=== PATIENT | male | born 1960 | race Caucasian/White ===

== ENCOUNTER → 2017-02-11 | Outpatient (CLI) | payer BC, MEDICARE ==
[~2017-02-11] VITALS: Ht 177.8 cm; Wt 149.5 kg
[~2017-02-11] MED LIST: AMARYL4 M1 PO; AMBIEN10 MG PO; ATORVASTATIN CA40 MG PO; CRESTOR 10MG10 MG PO; EC-NAPROSYN500 MG PO; GLUCOPHAGE PO; HYDROCHLOROTHIA1 T14 PO; NORCO 10-325 T1 EACH PO
[2017-02-11 10:07] VITALS: BP 138/68
== END ==
LOC: AMSURD 09:53
DX: Z00.00 Encounter for general adult medical examination without abnormal findings (principal); E11.9 Type 2 diabetes mellitus without complications; Z12.5 Encounter for screening for malignant neoplasm of prostate; R06.9 Unspecified abnormalities of breathing

== ENCOUNTER → 2017-02-13 | Outpatient (CLI) | payer BC, MEDICARE ==
[2017-02-11 10:07] VITALS: BP 138/68
== END ==
LOC: LAB 08:15
DX: Z12.11 Encounter for screening for malignant neoplasm of colon (principal)

== ENCOUNTER 2017-07-24 12:45 | Emergency (ER) | payer BC, MEDICARE ==
[2017-07-24 12:52] VITALS: BP 142/101
[2017-07-24 13:33] LABS: HEMATOCRIT 40.1 % (42.0-52.0); HEMOGLOBIN 13.9 g/dL (13.5-18.0); MEAN CELL VOLUME 93 fl (78-100); MEAN CORPUSCULAR HEMOGLOBIN 32 pg (27-31); MEAN CORPUSCULAR HGB CONC 35 g/dL (33-37); MEAN PLATELET VOLUME 10.4 fl (7.4-10.4); PLATELET COUNT 191 K/mm3 (130-400); RED BLOOD COUNT 4.33 M/mm3 (4.20-5.60); RED CELL DISTRIBUTION WIDTH 13.2 % (11.5-14.5); WHITE BLOOD COUNT 7.4 K/mm3 (4.8-10.8)
[2017-07-24 13:40] LABS: LYMPHOCYTE 28 % (20-51); NEUTROPHILS 68 % (42-75)
[2017-07-24 13:41] LABS: MONOCYTE 3 % (3-10)
[2017-07-24 13:46] LABS: D-DIMER 0.43 mg/L FEU (0.15-0.50)
[2017-07-24 13:47] LABS: ALBUMIN 3.9 g/dL (3.5-5.0); BUN/CREATININE RATIO 24.6 (6.0-26.0); CALCIUM 9.1 mg/dL (8.4-10.2); POTASSIUM 4.3 mmol/L (3.6-5.0); TOTAL BILIRUBIN 0.8 mg/dL (0.2-1.3); TOTAL PROTEIN 7.2 g/dL (6.3-8.2)
[2017-07-24 13:59] LABS: TROPONIN-I < 0.03 ng/mL (0.00-0.06)
== END 2017-07-24 13:36 | disposition left against medical advice (07) ==
LOC: ED 12:45
PROVIDERS: Physician Assistant
DX: R06.00 Dyspnea, unspecified (principal); Z53.21 Procedure and treatment not carried out due to patient leaving prior to being seen by health care provider; R05 Cough; R60.9 Edema, unspecified; M79.89 Other specified soft tissue disorders; E11.9 Type 2 diabetes mellitus without complications; G47.30 Sleep apnea, unspecified; E66.9 Obesity, unspecified; Z79.84 Long term (current) use of oral hypoglycemic drugs; M54.5 Low back pain; M19.90 Unspecified osteoarthritis, unspecified site; M54.12 Radiculopathy, cervical region; M10.9 Gout, unspecified; K42.9 Umbilical hernia without obstruction or gangrene

== ENCOUNTER → 2017-11-28 | Outpatient (CLI) | payer BC, MEDICARE ==
[2017-11-28 23:25] LABS: FOLLICLE STIMULATING HORMONE 9.6 mIU/mL (1.0-12.0); PROLACTIN 9.6 ng/mL (3.5-19.4); TESTOSTERONE 210 ng/dL (221-716)
== END ==
LOC: LAB 07:55
PROVIDERS: Internal Medicine
DX: E11.9 Type 2 diabetes mellitus without complications (principal); E23.0 Hypopituitarism

== ENCOUNTER → 2018-06-17 | Outpatient (CLI) | payer MEDICARE ==
[2018-06-09 11:05] VITALS: BP 139/81
[~2018-06-17] MED LIST changes: +HYZAAR 100-12.1 EACH PO
== END ==
LOC: LAB 09:56
DX: Z12.11 Encounter for screening for malignant neoplasm of colon (principal); E11.9 Type 2 diabetes mellitus without complications; E53.8 Deficiency of other specified B group vitamins

== ENCOUNTER → 2018-09-18 | Outpatient (CLI) | payer MEDICARE ==
[2018-06-09 11:05] VITALS: BP 139/81
== END ==
LOC: CARDREHAB 07:20 → CARDLAB 13:33
DX: R06.02 Shortness of breath (principal); E11.9 Type 2 diabetes mellitus without complications; Z86.79 Personal history of other diseases of the circulatory system; Z82.49 Family history of ischemic heart disease and other diseases of the circulatory system
CPT/HCPCS: A9500

== ENCOUNTER → 2018-09-21 | Outpatient (CLI) | payer MEDICARE ==
[2018-06-09 11:05] VITALS: BP 139/81
== END ==
LOC: VAS 11:12
DX: I51.7 Cardiomegaly (principal); I51.89 Other ill-defined heart diseases

== ENCOUNTER → 2019-01-18 | Outpatient (CLI) | payer MEDICARE ==
[2018-06-09 11:05] VITALS: BP 139/81
[2019-01-18 11:49] LABS: CALCIUM 9.6 mg/dL (8.4-10.2); POTASSIUM 4.3 mmol/L (3.5-5.1); TOTAL BILIRUBIN 0.7 mg/dL (0.2-1.2); TOTAL PROTEIN 7.3 g/dL (6.4-8.3)
[2019-01-18 11:58] LABS: EOS # 0.2 (0.04-0.40); EOS % 3.9 % (0.0-4.0); HEMATOCRIT 39.6 % (42.0-52.0); HEMOGLOBIN 13.6 g/dL (13.5-18.0); LYMPH# 1.7 (1.50-4.00); MEAN CELL VOLUME 92 fl (78-100); MEAN CORPUSCULAR HEMOGLOBIN 31 pg (27-31); MEAN CORPUSCULAR HGB CONC 34 g/dL (33-37); MEAN PLATELET VOLUME 10.2 fl (7.4-10.4); MONO # 0.5 (0.20-0.80); NEU # 3.8 (1.40-6.50); PLATELET COUNT 189 K/mm3 (130-400); RED BLOOD COUNT 4.33 M/mm3 (4.20-5.60); RED CELL DISTRIBUTION WIDTH 13.8 % (11.5-14.5); WHITE BLOOD COUNT 6.2 K/mm3 (4.8-10.8)
== END ==
LOC: LAB 11:08
PROVIDERS: Internal Medicine
DX: E11.9 Type 2 diabetes mellitus without complications (principal); E78.5 Hyperlipidemia, unspecified

== ENCOUNTER → 2020-02-07 | Outpatient (CLI) | payer MEDICARE ==
[2018-06-09 11:05] VITALS: BP 139/81
== END ==
LOC: RAD 13:33
DX: M18.12 Unilateral primary osteoarthritis of first carpometacarpal joint, left hand (principal)

== ENCOUNTER → 2020-02-25 | Outpatient (CLI) | payer MEDICARE ==
[2018-06-09 11:05] VITALS: BP 139/81
[2020-02-25 09:17] LABS: EOS # 0.2 (0.04-0.40); EOS % 3.7 % (0.0-4.0); HEMATOCRIT 37.4 % (42.0-52.0); HEMOGLOBIN 12.8 g/dL (13.5-18.0); LYMPH# 1.5 (1.50-4.00); MEAN CELL VOLUME 95 fl (78-100); MEAN CORPUSCULAR HEMOGLOBIN 33 pg (27-31); MEAN CORPUSCULAR HGB CONC 34 g/dL (33-37); MEAN PLATELET VOLUME 9.7 fl (7.4-10.4); MONO # 0.3 (0.20-0.80); NEU # 3.5 (1.40-6.50); PLATELET COUNT 211 K/mm3 (130-400); RED BLOOD COUNT 3.92 M/mm3 (4.20-5.60); RED CELL DISTRIBUTION WIDTH 13.8 % (11.5-14.5); WHITE BLOOD COUNT 5.5 K/mm3 (4.8-10.8)
[2020-02-25 10:12] LABS: ALBUMIN 4.2 g/dL (3.4-4.8); POTASSIUM 4.2 mmol/L (3.5-5.1)
[2020-02-25 10:13] LABS: CALCIUM 9.2 mg/dL (8.3-10.5)
[2020-02-25 10:15] LABS: TOTAL PROTEIN 7.4 g/dL (6.2-8.1)
[2020-02-25 10:17] LABS: TOTAL BILIRUBIN 0.7 mg/dL (0.2-1.2)
[2020-02-25 10:22] LABS: MAGNESIUM 1.64 mg/dL (1.60-2.60)
[2020-02-25 11:01] LABS: ERYTHROCYTE SEDIMENTATION RATE 30 mm/hr (0-20); URINE APPEARANCE CLEAR; URINE BILIRUBIN NEGATIVE (NEGATIVE); URINE BLOOD 50 ery/uL (NEGATIVE); URINE COLOR YELLOW; URINE GLUCOSE NEGATIVE (NEGATIVE); URINE KETONE NEGATIVE (NEGATIVE); URINE LEUKOCYTE ESTERASE NEGATIVE (NEGATIVE); URINE MUCUS PRESENT (NOT PRESENT); URINE NITRATE NEGATIVE (NEGATIVE); URINE PROTEIN(semi-quant) NEGATIVE (NEGATIVE); URINE UROBILINOGEN NORMAL (NORMAL)
[2020-02-25 22:08] LABS: TESTOSTERONE 235 ng/dL (221-716)
== END ==
LOC: LAB 09:02
PROVIDERS: Internal Medicine
DX: Z12.5 Encounter for screening for malignant neoplasm of prostate (principal); Z12.11 Encounter for screening for malignant neoplasm of colon; E78.5 Hyperlipidemia, unspecified; E11.9 Type 2 diabetes mellitus without complications; E23.0 Hypopituitarism; E53.8 Deficiency of other specified B group vitamins

== ENCOUNTER → 2020-02-29 | Outpatient (CLI) | payer MEDICARE ==
[2018-06-09 11:05] VITALS: BP 139/81
== END ==
LOC: LAB 14:14
DX: Z12.11 Encounter for screening for malignant neoplasm of colon (principal); E11.9 Type 2 diabetes mellitus without complications; E78.5 Hyperlipidemia, unspecified

== ENCOUNTER → 2020-06-23 | Outpatient (CLI) | payer MEDICARE ==
[2018-06-09 11:05] VITALS: BP 139/81
[2020-06-23 10:10] LABS: ALBUMIN 4.4 g/dL (3.4-4.8); POTASSIUM 4.7 mmol/L (3.5-5.1)
[2020-06-23 10:11] LABS: CALCIUM 9.4 mg/dL (8.3-10.5)
[2020-06-23 10:12] LABS: TOTAL PROTEIN 7.7 g/dL (6.2-8.1)
[2020-06-23 10:14] LABS: TOTAL BILIRUBIN 0.8 mg/dL (0.2-1.2)
== END ==
LOC: LAB 09:46
PROVIDERS: Internal Medicine
DX: E11.9 Type 2 diabetes mellitus without complications (principal); K90.9 Intestinal malabsorption, unspecified; E53.8 Deficiency of other specified B group vitamins

== ENCOUNTER → 2020-10-27 | Outpatient (CLI) | payer MEDICARE ==
[2018-06-09 11:05] VITALS: BP 139/81
== END ==
LOC: RAD 08:20
DX: M19.041 Primary osteoarthritis, right hand (principal)

== ENCOUNTER → 2020-11-09 | Outpatient (CLI) | payer MEDICARE ==
[2018-06-09 11:05] VITALS: BP 139/81
== END ==
LOC: RAD 15:43
DX: M18.12 Unilateral primary osteoarthritis of first carpometacarpal joint, left hand (principal); M19.032 Primary osteoarthritis, left wrist

== ENCOUNTER → 2021-02-26 | Outpatient (CLI) | payer MEDICARE ==
[2021-02-26 12:07] LABS: POTASSIUM 4.7 mmol/L (3.5-5.1)
[2021-02-26 12:08] LABS: ALBUMIN 4.2 g/dL (3.4-4.8)
[2021-02-26 12:09] LABS: CALCIUM 9.1 mg/dL (8.3-10.5)
[2021-02-26 12:10] LABS: BASO # 0.03 (0.02-0.10); EOS # 0.11 (0.04-0.40); HEMATOCRIT 37.5 % (42.0-52.0); HEMOGLOBIN 12.9 g/dL (13.5-18.0); LYMPH# 1.72 (1.50-4.00); MEAN CELL VOLUME 95 fl (78-100); MEAN CORPUSCULAR HEMOGLOBIN 33 pg (27-31); MEAN CORPUSCULAR HGB CONC 34 g/dL (33-37); MEAN PLATELET VOLUME 9.9 fl (7.4-10.4); MONO # 0.32 (0.20-0.80); NEU # 3.29 (1.40-6.50); PLATELET COUNT 167 K/mm3 (130-400); RED BLOOD COUNT 3.97 M/mm3 (4.20-5.60); RED CELL DISTRIBUTION WIDTH 13.4 % (11.5-14.5); TOTAL PROTEIN 7.4 g/dL (6.2-8.1); WHITE BLOOD COUNT 5.5 K/mm3 (4.8-10.8)
[2021-02-26 12:12] LABS: TOTAL BILIRUBIN 0.6 mg/dL (0.2-1.2)
[2021-02-26 13:29] LABS: ERYTHROCYTE SEDIMENTATION RATE 17 mm/hr (0-20)
[2021-02-27 02:16] LABS: TESTOSTERONE 270 ng/dL (221-716)
== END ==
LOC: LAB 11:14
PROVIDERS: Internal Medicine
DX: Z12.5 Encounter for screening for malignant neoplasm of prostate (principal); K90.9 Intestinal malabsorption, unspecified; E11.9 Type 2 diabetes mellitus without complications; E78.5 Hyperlipidemia, unspecified; E23.0 Hypopituitarism

== ENCOUNTER → 2021-05-16 | Outpatient (CLI) | payer MEDICARE | LOC: RAD 09:17 | DX: M77.32 Calcaneal spur, left foot (principal) ==

== ENCOUNTER → 2021-05-25 | Outpatient (CLI) | payer MEDICARE ==
[2021-05-25 10:14] LABS: POTASSIUM 4.5 mmol/L (3.5-5.1)
[2021-05-25 10:15] LABS: CALCIUM 9.5 mg/dL (8.3-10.5)
[2021-05-25 13:37] LABS: URINE APPEARANCE HAZY; URINE COLOR YELLOW; URINE PROTEIN(semi-quant) TRACE mg/dL (NEGATIVE)
[2021-05-25 13:38] LABS: URINE BILIRUBIN NEGATIVE (NEGATIVE); URINE BLOOD 250 ery/uL (NEGATIVE); URINE GLUCOSE NEGATIVE (NEGATIVE); URINE KETONE NEGATIVE (NEGATIVE); URINE LEUKOCYTE ESTERASE NEGATIVE (NEGATIVE); URINE MUCUS PRESENT (NOT PRESENT); URINE NITRATE NEGATIVE (NEGATIVE); URINE UROBILINOGEN NORMAL (NORMAL); URINE WBC 0-1 /hpf (0-3)
== END ==
LOC: LAB 09:37
PROVIDERS: Internal Medicine
DX: I10 Essential (primary) hypertension (principal); E11.9 Type 2 diabetes mellitus without complications

== ENCOUNTER → 2021-05-30 | Outpatient (CLI) | payer MEDICARE ==
[2021-05-31 08:23] LABS: URINE WBC 0 /hpf (0-3)
[2021-05-31 08:30] LABS: URINE APPEARANCE CLEAR; URINE BILIRUBIN NEGATIVE (NEGATIVE); URINE BLOOD 50 ery/uL (NEGATIVE); URINE COLOR YELLOW; URINE GLUCOSE NEGATIVE (NEGATIVE); URINE KETONE NEGATIVE (NEGATIVE); URINE LEUKOCYTE ESTERASE NEGATIVE (NEGATIVE); URINE NITRATE NEGATIVE (NEGATIVE); URINE PROTEIN(semi-quant) NEGATIVE (NEGATIVE); URINE UROBILINOGEN NORMAL (NORMAL)
[2021-05-31 08:31] LABS: URINE MUCUS PRESENT (NOT PRESENT)
== END ==
LOC: LAB 07:53
PROVIDERS: Internal Medicine
DX: E11.9 Type 2 diabetes mellitus without complications (principal); R31.29 Other microscopic hematuria

== ENCOUNTER → 2021-06-18 | Outpatient (CLI) | payer MEDICARE | LOC: RAD 09:40 | DX: M47.22 Other spondylosis with radiculopathy, cervical region (principal); Z98.1 Arthrodesis status ==

== ENCOUNTER → 2021-07-25 | Outpatient (CLI) | payer MEDICARE ==
[2021-07-25 08:18] LABS: POTASSIUM 4.9 mmol/L (3.5-5.1)
[2021-07-25 08:19] LABS: CALCIUM 9.3 mg/dL (8.3-10.5)
[2021-07-25 08:26] LABS: MAGNESIUM 1.78 mg/dL (1.60-2.60)
== END ==
LOC: LAB 07:06
PROVIDERS: Internal Medicine
DX: I10 Essential (primary) hypertension (principal)

== ENCOUNTER → 2021-11-05 | Outpatient (CLI) | payer MEDICARE ==
[2021-11-05 11:08] LABS: ALBUMIN 4.1 g/dL (3.4-4.8)
[2021-11-05 11:09] LABS: POTASSIUM 4.7 mmol/L (3.5-5.1)
[2021-11-05 11:10] LABS: CALCIUM 9.8 mg/dL (8.3-10.5)
[2021-11-05 11:11] LABS: TOTAL PROTEIN 7.3 g/dL (6.2-8.1)
[2021-11-05 11:13] LABS: TOTAL BILIRUBIN 0.8 mg/dL (0.2-1.2)
== END ==
LOC: LAB 10:16
PROVIDERS: Internal Medicine
DX: K92.1 Melena (principal); E11.9 Type 2 diabetes mellitus without complications; M54.12 Radiculopathy, cervical region; R31.29 Other microscopic hematuria; I10 Essential (primary) hypertension; E66.01 Morbid (severe) obesity due to excess calories; M70.61 Trochanteric bursitis, right hip; G89.29 Other chronic pain

== ENCOUNTER → 2022-01-22 | Outpatient (CLI) | payer MEDICARE ==
[2022-01-22 08:53] LABS: BASO # 0.01 K/mm3 (0.02-0.10); EOS # 0.15 K/mm3 (0.04-0.40); HEMATOCRIT 39.4 % (42.0-52.0); HEMOGLOBIN 13.4 g/dL (13.5-18.0); LYMPH# 1.26 K/mm3 (1.50-4.00); MEAN CELL VOLUME 95 fl (78-100); MEAN CORPUSCULAR HEMOGLOBIN 32 pg (27-31); MEAN CORPUSCULAR HGB CONC 34 g/dL (33-37); MEAN PLATELET VOLUME 9.1 fl (7.4-10.4); MONO # 0.31 K/mm3 (0.20-0.80); NEU # 3.26 K/mm3 (1.40-6.50); PLATELET COUNT 175 K/mm3 (130-400); RED BLOOD COUNT 4.13 M/mm3 (4.20-5.60); RED CELL DISTRIBUTION WIDTH 13.1 % (11.5-14.5)
[2022-01-22 08:58] LABS: POTASSIUM 5.2 mmol/L (3.5-5.1)
[2022-01-22 08:59] LABS: CALCIUM 9.6 mg/dL (8.3-10.5)
[2022-01-22 09:00] LABS: TOTAL PROTEIN 7.2 g/dL (6.2-8.1)
[2022-01-22 09:02] LABS: TOTAL BILIRUBIN 0.7 mg/dL (0.2-1.2)
== END ==
LOC: LAB 08:16
PROVIDERS: Internal Medicine
DX: E11.9 Type 2 diabetes mellitus without complications (principal); M54.12 Radiculopathy, cervical region; R31.29 Other microscopic hematuria; I10 Essential (primary) hypertension; E66.01 Morbid (severe) obesity due to excess calories; G89.29 Other chronic pain; E78.5 Hyperlipidemia, unspecified; E23.0 Hypopituitarism

== ENCOUNTER → 2022-02-08 | Outpatient (CLI) | payer MEDICARE ==
[2022-02-08 09:43] LABS: URINE WBC 0 /hpf (0-3)
[2022-02-08 10:44] LABS: URINE APPEARANCE CLEAR; URINE COLOR YELLOW
[2022-02-08 10:45] LABS: URINE BILIRUBIN NEGATIVE (NEGATIVE); URINE BLOOD 50 ery/uL (NEGATIVE); URINE GLUCOSE NEGATIVE (NEGATIVE); URINE KETONE NEGATIVE (NEGATIVE); URINE LEUKOCYTE ESTERASE NEGATIVE (NEGATIVE); URINE NITRATE NEGATIVE (NEGATIVE); URINE PROTEIN(semi-quant) TRACE (NEGATIVE); URINE UROBILINOGEN NORMAL (NORMAL)
== END ==
LOC: LAB 09:27
PROVIDERS: Internal Medicine
DX: E11.9 Type 2 diabetes mellitus without complications (principal); M54.12 Radiculopathy, cervical region; I10 Essential (primary) hypertension; E66.01 Morbid (severe) obesity due to excess calories; G89.29 Other chronic pain; E78.5 Hyperlipidemia, unspecified; E23.0 Hypopituitarism; R31.29 Other microscopic hematuria

== ENCOUNTER → 2022-04-12 | Outpatient (CLI) | payer MEDICARE ==
[2022-04-12 15:07] LABS: BASO # 0.03 K/mm3 (0.02-0.10); EOS # 0.21 K/mm3 (0.04-0.40); EOS % 2.9 % (0.0-4.0); HEMATOCRIT 39.4 % (42.0-52.0); HEMOGLOBIN 13.6 g/dL (13.5-18.0); LYMPH# 1.85 K/mm3 (1.50-4.00); MEAN CELL VOLUME 94 fl (78-100); MEAN CORPUSCULAR HEMOGLOBIN 32 pg (27-31); MEAN CORPUSCULAR HGB CONC 35 g/dL (33-37); MEAN PLATELET VOLUME 9.7 fl (7.4-10.4); MONO # 0.53 K/mm3 (0.20-0.80); NEU # 4.51 K/mm3 (1.40-6.50); PLATELET COUNT 198 K/mm3 (130-400); RED BLOOD COUNT 4.21 M/mm3 (4.20-5.60); RED CELL DISTRIBUTION WIDTH 13.1 % (11.5-14.5); WHITE BLOOD COUNT 7.1 K/mm3 (4.8-10.8)
[2022-04-12 15:17] LABS: ALBUMIN 4.1 g/dL (3.4-4.8); POTASSIUM 4.7 mmol/L (3.5-5.1)
[2022-04-12 15:18] LABS: CALCIUM 9.2 mg/dL (8.3-10.5)
[2022-04-12 15:19] LABS: TOTAL PROTEIN 6.8 g/dL (6.2-8.1)
[2022-04-12 15:21] LABS: TOTAL BILIRUBIN 0.9 mg/dL (0.2-1.2)
== END ==
LOC: AMSURD 14:36
PROVIDERS: Internal Medicine
DX: I49.3 Ventricular premature depolarization (principal); I10 Essential (primary) hypertension

== ENCOUNTER → 2022-12-27 | Outpatient (CLI) | payer MEDICARE ==
[2022-12-27 09:14] LABS: POTASSIUM 4.3 mmol/L (3.5-5.1)
[2022-12-27 09:15] LABS: CALCIUM 9.5 mg/dL (8.3-10.5)
== END ==
LOC: LAB 08:40
DX: I12.9 Hypertensive chronic kidney disease with stage 1 through stage 4 chronic kidney disease, or unspecified chronic kidney disease (principal); N17.9 Acute kidney failure, unspecified; E11.21 Type 2 diabetes mellitus with diabetic nephropathy; E78.5 Hyperlipidemia, unspecified

== ENCOUNTER → 2023-06-24 | Outpatient (CLI) | payer MEDICARE | LOC: LAB 16:33 | DX: Z23 Encounter for immunization (principal); A53.0 Latent syphilis, unspecified as early or late; G89.29 Other chronic pain; M10.9 Gout, unspecified; E11.9 Type 2 diabetes mellitus without complications; M54.12 Radiculopathy, cervical region; K90.9 Intestinal malabsorption, unspecified; K81.0 Acute cholecystitis; M62.81 Muscle weakness (generalized); G47.33 Obstructive sleep apnea (adult) (pediatric); Z98.84 Bariatric surgery status ==

== ENCOUNTER → 2023-09-30 | Outpatient (CLI) | payer MEDICARE ==
[2023-09-30 13:40] LABS: HEMATOCRIT 42.2 % (42.0-52.0); HEMOGLOBIN 14.3 g/dL (13.5-18.0); MEAN PLATELET VOLUME 9.3 fl (7.4-10.4); RED BLOOD COUNT 4.39 M/mm3 (4.20-5.60); RED CELL DISTRIBUTION WIDTH 13.5 % (11.5-14.5); WHITE BLOOD COUNT 4.8 K/mm3 (4.8-10.8)
[2023-09-30 13:44] LABS: ALBUMIN 4.2 g/dL (3.4-4.8)
[2023-09-30 13:46] LABS: CALCIUM 9.3 mg/dL (8.3-10.5)
[2023-09-30 13:47] LABS: TOTAL PROTEIN 6.8 g/dL (6.2-8.1)
[2023-09-30 13:49] LABS: TOTAL BILIRUBIN 0.9 mg/dL (0.2-1.2)
[2023-09-30 22:30] LABS: FOLATE (FOLIC ACID) 19.5 ng/mL (2.0-20.0)
== END ==
LOC: LAB 13:25
PROVIDERS: Surgery
DX: Z98.84 Bariatric surgery status (principal)

== ENCOUNTER → 2023-11-10 | Outpatient (CLI) | payer MEDICARE | LOC: RAD 10:18 | DX: M19.012 Primary osteoarthritis, left shoulder (principal); M19.032 Primary osteoarthritis, left wrist; M25.742 Osteophyte, left hand ==

== ENCOUNTER → 2024-05-31 | Outpatient (CLI) | payer MEDICARE ==
[2024-05-31 08:04] LABS: BASO # 0.01 K/mm3 (0.02-0.10); EOS # 0.09 K/mm3 (0.04-0.40); EOS % 2.1 % (0.0-4.0); HEMATOCRIT 41.2 % (42.0-52.0); HEMOGLOBIN 13.8 g/dL (13.5-18.0); LYMPH# 1.37 K/mm3 (1.50-4.00); MEAN CELL VOLUME 99 fl (78-100); MEAN CORPUSCULAR HEMOGLOBIN 33 pg (27-31); MEAN CORPUSCULAR HGB CONC 34 g/dL (33-37); MEAN PLATELET VOLUME 9.1 fl (7.4-10.4); MONO # 0.25 K/mm3 (0.20-0.80); PLATELET COUNT 155 K/mm3 (130-400); RED BLOOD COUNT 4.18 M/mm3 (4.20-5.60); RED CELL DISTRIBUTION WIDTH 13.2 % (11.5-14.5); WHITE BLOOD COUNT 4.3 K/mm3 (4.8-10.8)
[2024-05-31 08:25] LABS: ALBUMIN 3.9 g/dL (3.4-4.8)
[2024-05-31 08:26] LABS: CALCIUM 9.1 mg/dL (8.3-10.5)
[2024-05-31 08:28] LABS: TOTAL PROTEIN 6.7 g/dL (6.2-8.1)
[2024-05-31 08:29] LABS: TOTAL BILIRUBIN 0.9 mg/dL (0.2-1.2)
[2024-05-31 08:35] LABS: MAGNESIUM 1.93 mg/dL (1.60-2.60)
[2024-05-31 15:47] LABS: PH-URINE 5.5 (5.0 - 8.0); URINE APPEARANCE CLEAR (CLEAR); URINE BILIRUBIN 1+ (NEGATIVE); URINE BLOOD 2+ (NEGATIVE); URINE COLOR YELLOW (YELLOW); URINE GLUCOSE NEGATIVE (NEGATIVE); URINE KETONE NEGATIVE (NEGATIVE); URINE LEUKOCYTE ESTERASE NEGATIVE (NEGATIVE); URINE NITRATE NEGATIVE (NEGATIVE); URINE PROTEIN(semi-quant) 1+ (NEGATIVE)
[2024-05-31 15:48] LABS: URINE MUCUS PRESENT (NOT PRESENT)
[2024-05-31 17:08] LABS: PTH,INTACT 72.7 pg/mL (6.6-88.9)
[2024-05-31 17:25] LABS: FOLATE (FOLIC ACID) 6.4 ng/mL (2.0-20.0)
== END ==
LOC: LAB 07:45
PROVIDERS: Internal Medicine
DX: Z12.5 Encounter for screening for malignant neoplasm of prostate (principal); M10.9 Gout, unspecified; K90.9 Intestinal malabsorption, unspecified; E78.5 Hyperlipidemia, unspecified; E11.9 Type 2 diabetes mellitus without complications; I10 Essential (primary) hypertension; E23.0 Hypopituitarism; Z98.84 Bariatric surgery status

== ENCOUNTER → 2024-06-16 | Outpatient (CLI) | payer MEDICARE | LOC: RAD 08:40 | DX: N20.0 Calculus of kidney (principal) ==

== ENCOUNTER → 2024-12-10 | Outpatient (CLI) | payer MEDICARE ==
[2024-12-10 10:38] LABS: BASO # 0.01 K/mm3 (0.02-0.10); EOS % 3.5 % (0.0-4.0); HEMATOCRIT 36.6 % (42.0-52.0); HEMOGLOBIN 12.6 g/dL (13.5-18.0); LYMPH# 1.28 K/mm3 (1.50-4.00); MEAN CELL VOLUME 96 fl (78-100); MEAN CORPUSCULAR HEMOGLOBIN 33 pg (27-31); MEAN CORPUSCULAR HGB CONC 34 g/dL (33-37); MEAN PLATELET VOLUME 9.8 fl (7.4-10.4); MONO # 0.38 K/mm3 (0.20-0.80); NEU # 3.86 K/mm3 (1.40-6.50); PLATELET COUNT 186 K/mm3 (130-400); RED BLOOD COUNT 3.81 M/mm3 (4.20-5.60); RED CELL DISTRIBUTION WIDTH 13.7 % (11.5-14.5); WHITE BLOOD COUNT 5.7 K/mm3 (4.8-10.8)
[2024-12-10 10:45] LABS: ALBUMIN 3.9 g/dL (3.4-4.8)
[2024-12-10 10:46] LABS: CALCIUM 8.6 mg/dL (8.3-10.5)
[2024-12-10 10:47] LABS: TOTAL PROTEIN 7.3 g/dL (6.2-8.1)
[2024-12-10 10:49] LABS: TOTAL BILIRUBIN 0.5 mg/dL (0.2-1.2)
[2024-12-10 10:54] LABS: MAGNESIUM 1.94 mg/dL (1.60-2.60)
[2024-12-10 23:05] LABS: PTH,INTACT 97.7 pg/mL (6.6-88.9)
[2024-12-15 09:10] LABS: VITAMIN B1 80.3 nmol/L (())
== END ==
LOC: LAB 09:43
PROVIDERS: Internal Medicine
DX: M10.9 Gout, unspecified (principal); E11.9 Type 2 diabetes mellitus without complications; I10 Essential (primary) hypertension; K90.9 Intestinal malabsorption, unspecified; E78.5 Hyperlipidemia, unspecified; E23.0 Hypopituitarism; Z98.84 Bariatric surgery status